=== PATIENT | male | born 1960 | race Caucasian/White ===

== ENCOUNTER 2019-02-20 17:46 | Emergency (ER) | payer SELFPAY ==
[~2019-02-20] VITALS: Ht 167.6 cm; Wt 118.4 kg
[2019-02-20 18:17] VITALS: BP 134/88
== END 2019-02-20 19:28 | disposition left against medical advice (07) ==
LOC: ED 17:46
DX: Z53.21 Procedure and treatment not carried out due to patient leaving prior to being seen by health care provider (principal)

== ENCOUNTER 2019-02-20 20:29 | Emergency (ER) | payer SELFPAY ==
[~2019-02-20] VITALS: Ht 167.6 cm; Wt 118.4 kg
[2019-02-20 20:51] VITALS: Ht 167.6 cm; Wt 118.4 kg
[2019-02-20 23:38] VITALS: BP 122/80
== END 2019-02-20 23:38 | disposition home or self-care (01) ==
LOC: ED 20:29
DX: S20.211A Contusion of right front wall of thorax, initial encounter (principal); S20.221A Contusion of right back wall of thorax, initial encounter; J45.909 Unspecified asthma, uncomplicated; J90 Pleural effusion, not elsewhere classified; V28.4XXA Motorcycle driver injured in noncollision transport accident in traffic accident, initial encounter; Y93.I9 Activity, other involving external motion; Y92.411 Interstate highway as the place of occurrence of the external cause; Y99.8 Other external cause status
CPT/HCPCS: 72072; J1885